=== PATIENT | female | born 1940 | race Caucasian/White ===

== ENCOUNTER 2023-08-29 08:09 | Outpatient (CLI) | payer OTHER | END 2023-08-29 10:30 | disposition home or self-care (01) | LOC: RX STUDY 08:09 | PROVIDERS: ATTEND Internal Medicine Gastroenterology | DX: R14.0 Abdominal distension (gaseous) (principal); R14.2 Eructation; R10.13 Epigastric pain; R13.10 Dysphagia, unspecified ==